=== PATIENT | female | born 1945 | race Caucasian/White ===

== ENCOUNTER → 2024-10-23 13:06 | Outpatient (REF) | payer MEDICARE, OTHER, SELFPAY | LOC: WDC 13:06 | PROVIDERS: ATTENDING PHYSICIAN Obstetrics & Gynecology; FAMILY PHYSICIAN Internal Medicine Geriatric Medicine; REFERRING PHYSICIAN Internal Medicine Geriatric Medicine | DX: M85.80 Other specified disorders of bone density and structure, unspecified site (principal); Z78.0 Asymptomatic menopausal state; Z12.31 Encounter for screening mammogram for malignant neoplasm of breast | CPT/HCPCS: 77063; 77067; 77080 ==

== ENCOUNTER → 2024-11-17 09:51 | Outpatient (REF) | payer MEDICARE, OTHER, SELFPAY ==
[2024-11-17 13:14] LABS: TSH 2.45 uIU/ml (0.47-4.68)
== END ==
LOC: RAD 09:51
PROVIDERS: ATTENDING PHYSICIAN Otolaryngology; FAMILY PHYSICIAN Internal Medicine Geriatric Medicine; REFERRING PHYSICIAN Internal Medicine Geriatric Medicine
DX: E04.0 Nontoxic diffuse goiter (principal); E07.9 Disorder of thyroid, unspecified
CPT/HCPCS: 36415; 76536; 84443